=== PATIENT | female | born 1965 | race Caucasian/White ===

== ENCOUNTER 2022-02-09 19:43 | Emergency (ER) | payer BC ==
[2022-02-09] MEDS ORDERED: Sodium Chloride 0.9% 1,000 ML IV ONE (20:27)
[2022-02-09] MEDS ORDERED: Ketorolac 30 MG/ML SDV IVPUSH ONE (20:28)
[2022-02-09] MEDS ORDERED: Sodium Chloride 0.9% 10 ML Syringe FLUSH PRN (20:28)
[2022-02-09] MEDS ORDERED: Ondansetron 4 MG/2 ML SDV IVPUSH ONE (20:28)
[2022-02-09 20:51] LABS: ESTIMATED GFR 59 mL/min (>60)
[2022-02-09] MEDS ORDERED: hydrOXYzine HCl 50 MG/ML SDV IM ONE (21:07)
[2022-02-09] MEDS ORDERED: Acetaminophen 500 MG Tab PO ONE (21:07)
[2022-02-09] MEDS ORDERED: SUMAtriptan 6 MG/0.5 ML SDV SUBCUT ONE (21:07)
[2022-02-09 22:05] LABS: CORONAVIRUS COVID-19 NAA NEGATIVE (NEGATIVE)
== END 2022-02-09 22:23 | disposition home or self-care (01) ==
LOC: FB.ED 19:43
DX: E86.0 Dehydration (principal); G43.909 Migraine, unspecified, not intractable, without status migrainosus; M19.90 Unspecified osteoarthritis, unspecified site; Z88.5 Allergy status to narcotic agent; Z88.2 Allergy status to sulfonamides; Z79.899 Other long term (current) drug therapy; Z20.822 Contact with and (suspected) exposure to COVID-19
CPT/HCPCS: 0240U; 36415; 80048; 85025; 96361; 96372; 96374; 96375; 99284-25; A9270-GY; J1885; J2405; J3030; J3410; J3490; J7030